=== PATIENT | female | born 2000 | race Caucasian/White ===

== ENCOUNTER → 2023-04-13 13:40 | Outpatient (CLI) | payer OTHER, SELFPAY ==
--- NOTE | ~2023-04-13 | US_ITS ---
EXAMINATION: US pelvic complete DATE: 04/13/2023 13:59 INDICATION: Dyspareunia, left adnexal pain TECHNIQUE: Multiple transabdominal sonographic images of the pelvis were obtained. COMPARISON: None. FINDINGS: The uterus measures 7.7 x 3.1 x 3.2 cm. The endometrial complex measures 5 mm. IUD appears to be in expected position. The right ovary measures 3.2 x 2.1 x 3.3 cm. The left ovary measures 2.6 x 1.3 x 2.1 cm. There is normal vascular flow in the ovaries. There is no free fluid in the pelvis. IMPRESSION: 1. No sonographic correlate for the patient's symptoms. Reviewed, dictated and finalized at location F. [employer]
== END ==
PROVIDERS: PCP Advanced Practice Midwife; Visit Provider Advanced Practice Midwife
DX: N94.11 Superficial (introital) dyspareunia (principal); R10.2 Pelvic and perineal pain
CPT/HCPCS: 76856

== ENCOUNTER 2025-02-27 10:47 | Outpatient (CLI) | payer OTHER, SELFPAY ==
--- NOTE | ~2025-02-27 | US_ITS ---
EXAMINATION: US pelvic complete DATE: 02/27/2025 11:09 INDICATION: Pelvic pain. Intrauterine device placement. TECHNIQUE: Multiple transabdominal sonographic images of the pelvis were obtained. COMPARISON: Ultrasound 04/13/2023 FINDINGS: The uterus measures 9.5 x 3.4 x 4.4 cm. There is no free fluid in the pelvis. The endometrial complex measures 3 mm in thickness. There is an intrauterine device in the lower uterine segment. The right ovary measures 3.0 x 2.0 x 3.0 cm. The left ovary measures 2.7 x 2.2 x 2.3 cm. There is normal vascular flow in the ovaries. IMPRESSION: 1. Intrauterine device in abnormal position in the lower uterine segment. Reviewed, dictated and finalized at location E.
== END 2025-02-27 10:48 | disposition home or self-care (01) ==
LOC: MICIMG 10:48
PROVIDERS: PCP Family Medicine
DX: R10.20 Pelvic and perineal pain unspecified side (principal); Z30.431 Encounter for routine checking of intrauterine contraceptive device
CPT/HCPCS: 76856